=== PATIENT | female | born 1955 | race African-American/Black ===

== ENCOUNTER 2017-09-13 11:30 | Emergency (ER) | payer MEDICAID ==
[~2017-09-13] VITALS: Ht 165.1 cm; Wt 122.5 kg
[2017-09-13 11:34] VITALS: BP 137/61
[2017-09-13] MEDS ORDERED: MEPERIDINE HCL (50 MG/ML) 1 ML VIAL IM ONE (12:30)
[2017-09-13] MEDS ORDERED: PROMETHAZINE HCL 25 MG/ML 1ML IM ONE (12:30)
== END 2017-09-13 12:59 | disposition home or self-care (01) ==
LOC: ER 11:30
DX: G89.29 Other chronic pain (principal); M54.5 Low back pain; M54.32 Sciatica, left side
CPT/HCPCS: 93005; 96372; 99284; J2175; J2550

== ENCOUNTER 2022-05-24 19:28 | Emergency (ER) | payer MEDICARE, MEDICAID ==
[~2022-05-24] VITALS: Ht 165.1 cm; Wt 118.0 kg
[2022-05-24] MEDS ORDERED: ONDANSETRON ODT 4 MG TAB PO ONE (20:00)
[2022-05-24 20:30] LABS: Basophils # (auto) 0.1 10 ^3/uL (0-0.2); Eosinophils # (auto) 0.3 10 ^3/uL (0-0.8); Eosinophils % (auto) 4.7 % (0.0-7.0); Hematocrit 38.6 % (36.0-46.0); Hemoglobin 12.7 g/dL (12.2-16.2); Lymphocytes % (auto) 33.4 % (10.0-50.0); Mean Corpuscular Hemoglobin 29.4 pg (28.0-32.0); Mean Corpuscular Volume 89.3 fL (80.0-100.0); Monocytes # (auto) 0.4 10 ^3/uL (0-1.3); Monocytes % (auto) 7.3 % (0.0-12.0); Neutrophils # (auto) 3.3 10 ^3/uL (1.6-8.6); Neutrophils % (auto) 53.6 % (37.0-80.0); Nucleated Red Blood Cells % 0.2 %; Red Blood Cells 4.32 10^6/uL (4.0-5.20); White Blood Cell 6.1 10^3/uL (4.4-10.8)
[2022-05-24 20:46] LABS: Albumin 3.3 g/dL (3.4-5.0); BUN/Creatinine Ratio 9.9; Calcium 9.1 mg/dL (8.5-10.1); Potassium 4.7 mmol/L (3.5-5.1)
[2022-05-24 20:49] LABS: Bilirubin, Total 0.4 mg/dL (0.2-1.0); Total Protein 7.9 g/dL (6.4-8.2)
[2022-05-25 02:06] VITALS: BP 130/63
== END 2022-05-25 02:09 | disposition home or self-care (01) ==
LOC: ER 19:28
DX: K80.80 Other cholelithiasis without obstruction (principal)
CPT/HCPCS: 36415; 76705; 80053; 83690; 85025; 93005; 99285; Q0162

== ENCOUNTER 2023-03-11 20:46 | Emergency (ER) | payer MEDICARE, MEDICAID ==
[~2023-03-11] VITALS: Ht 165.1 cm; Wt 118.1 kg
[2023-03-11 21:30] VITALS: BP 123/51; PULSE 94; RESP 18; O2SAT 98
[2023-03-12] MEDS ORDERED: CETITAB29 PO (02:04)
[2023-03-12] MEDS ORDERED: CEPH500C PO (02:04)
[2023-03-12] MEDS ORDERED: PRED20TA2 PO (02:04)
[2023-03-12] MEDS ORDERED: diphenhdrAMINE HCL 50 MG/1 ML VL IM ONE (02:15)
[2023-03-12] MEDS ORDERED: cefTRIAXone SOD 1,000 MG VL IM ONE (02:15)
[2023-03-12] MEDS ORDERED: DexAMETHasone SOD PHOS 10MG/1ML VIAL INJ IM ONE (02:15)
== END 2023-03-12 02:34 | disposition home or self-care (01) ==
LOC: ER 20:46
DX: S80.862A Insect bite (nonvenomous), left lower leg, initial encounter (principal); S80.861A Insect bite (nonvenomous), right lower leg, initial encounter; Z79.899 Other long term (current) drug therapy; W57.XXXA Bitten or stung by nonvenomous insect and other nonvenomous arthropods, initial encounter; Y93.89 Activity, other specified; Y92.89 Other specified places as the place of occurrence of the external cause; Y99.8 Other external cause status
CPT/HCPCS: 96372; 99284; J0696; J1100; J1200

== ENCOUNTER 2023-11-23 23:27 | Inpatient (IN) | payer MEDICARE, MEDICAID ==
[~2023-11-23] VITALS: Ht 162.6 cm; Wt 118.3 kg
[~2023-11-23 23:27] MED LIST: CEPH500C PO; CETITAB29 PO; PRED20TA2 PO
[2023-11-24 00:33] LABS: Basophils # (auto) 0.1 10 ^3/uL (0-0.2); Basophils % (auto) 0.9 % (0.0-2.0); Eosinophils # (auto) 0.3 10 ^3/uL (0-0.8); Eosinophils % (auto) 3.6 % (0.0-7.0); Hematocrit 41.2 % (36.0-46.0); Hemoglobin 13.6 g/dL (12.2-16.2); Lymphocytes # (auto) 3.5 10 ^3/uL (0.4-5.4); Lymphocytes % (auto) 36.8 % (10.0-50.0); Mean Corpuscular Hemoglobin 29.9 pg (28.0-32.0); Mean Corpuscular Volume 90.5 fL (80.0-100.0); Monocytes # (auto) 0.7 10 ^3/uL (0-1.3); Monocytes % (auto) 7.3 % (0.0-12.0); Neutrophils # (auto) 4.8 10 ^3/uL (1.6-8.6); Neutrophils % (auto) 51.4 % (37.0-80.0); Nucleated Red Blood Cells % 0.1 %; Red Blood Cells 4.56 10^6/uL (4.0-5.20); Red Cell Distribution Width 13.1 % (11.8-14.3); White Blood Cell 9.4 10^3/uL (4.4-10.8)
[2023-11-24 00:52] LABS: Albumin 4.2 g/dL (3.2-4.8); Alkaline Phosphatase 87 U/L (46-116); Anion Gap 4 (5-15); Aspartate Aminotransferase 13 U/L (13-40); BUN/Creatinine Ratio 7.8 (10.0-20.0); Bilirubin, Total 0.4 mg/dL (0.2-1.0); Blood Urea Nitrogen 7 mg/dL (9-23); Calcium 9.7 mg/dL (8.7-10.4); Carbon Dioxide 29 mmol/L (20-30); Chloride 106 mmol/L (98-107); Glucose 130 mg/dL (74-106); Lipase 26 U/L (12-53); Potassium 3.2 mmol/L (3.5-5.1); Sodium 139 mmol/L (136-145); Total Protein 7.7 g/dL (5.7-8.2)
[2023-11-24 00:54] LABS: Alanine Aminotransferase < 9 U/L (7-40)
[2023-11-24] MEDS: SODIUM CHLORIDE 0.9% 1,000 ML IV ONE (01:00)
[2023-11-24] MEDS: PANTOPRAZOLE 40 MG/10 ML VIAL INJ IV ONE ×2 (02:02→14:43)
[2023-11-24] MEDS: ONDANSETRON HCL 4 MG/2 ML VIAL IV ONE (02:03)
[2023-11-24] MEDS: MORPHINE SULFATE 4 MG/ML SYR/VIAL IV ONE (02:04)
[2023-11-24] MEDS ORDERED: ONDANSETRON HCL 4 MG/2 ML VIAL IV PRN (06:30)
[2023-11-24] MEDS ORDERED: ACETAMINOPHEN 325 MG TAB PO PRN (06:30)
[2023-11-24] MEDS: POTASSIUM CHL 20 Meq TABLET PO ONE (06:30)
[2023-11-24 09:45] VITALS: PULSE 72; RESP 12; O2SAT 97
[2023-11-24 11:05] VITALS: PULSE 60
[2023-11-24 11:06] VITALS: BP 120/54; PULSE 60; RESP 16; TEMP 97.3; O2SAT 95
[2023-11-24 13:00] VITALS: BP 123/63; PULSE 66; RESP 16; TEMP 97.4; O2SAT 96
[2023-11-24 13:59] LABS: INR 1.06 (0.9-1.15); Partial Thromboplastin Time 28.7 SEC (24.5-34.5); Prothrombin Time 11.2 sec (9.3-11.8)
[2023-11-24] MEDS: metroNIDAZOLE 500 MG TAB PO SCH (14:42)
[2023-11-24] MEDS: cefTRIAXone 1GM/50ML D5W 50 ML IV ONE (14:42)
[2023-11-24 17:00] VITALS: BP 131/69; PULSE 79; RESP 16; TEMP 97.5; O2SAT 97
[2023-11-24 21:00] VITALS: BP 110/53; PULSE 66; RESP 16; TEMP 97.4; O2SAT 96
[2023-11-25] VITALS (7 sets, daily range): BP systolic 109–142; BP diastolic 49–81; PULSE 73–84; RESP 18–20; TEMP 97.5–98.1; O2SAT 95–99
[2023-11-25 05:36] LABS: Basophils # (auto) 0.1 10 ^3/uL (0-0.2); Basophils % (auto) 0.8 % (0.0-2.0); Eosinophils # (auto) 0.4 10 ^3/uL (0-0.8); Eosinophils % (auto) 5.4 % (0.0-7.0); Hematocrit 36.5 % (36.0-46.0); Hemoglobin 12.2 g/dL (12.2-16.2); Lymphocytes # (auto) 2.7 10 ^3/uL (0.4-5.4); Lymphocytes % (auto) 34.6 % (10.0-50.0); Mean Corpuscular Hemoglobin 30.3 pg (28.0-32.0); Mean Corpuscular Hgb Conc. 33.5 g/dL (32.0-36.0); Mean Corpuscular Volume 90.5 fL (80.0-100.0); Monocytes # (auto) 0.8 10 ^3/uL (0-1.3); Monocytes % (auto) 9.6 % (0.0-12.0); Neutrophils # (auto) 3.9 10 ^3/uL (1.6-8.6); Neutrophils % (auto) 49.6 % (37.0-80.0); Nucleated Red Blood Cells % 0.1 %; Red Blood Cells 4.04 10^6/uL (4.0-5.20); White Blood Cell 7.9 10^3/uL (4.4-10.8)
[2023-11-25 05:55] LABS: Albumin 3.7 g/dL (3.2-4.8); Alkaline Phosphatase 75 U/L (46-116); Anion Gap 4 (5-15); Aspartate Aminotransferase 12 U/L (13-40); Bilirubin, Total 0.6 mg/dL (0.2-1.0); Calcium 9.5 mg/dL (8.7-10.4); Carbon Dioxide 29 mmol/L (20-30); Chloride 108 mmol/L (98-107); Glucose 100 mg/dL (74-106); Potassium 4.3 mmol/L (3.5-5.1); Sodium 141 mmol/L (136-145)
[2023-11-25 05:56] LABS: Total Protein 6.6 g/dL (5.7-8.2)
[2023-11-25 06:00] LABS: Alanine Aminotransferase < 9 U/L (7-40); BUN/Creatinine Ratio 6.1 (10.0-20.0); Blood Urea Nitrogen < 5 mg/dL (9-23)
[2023-11-25 06:59] LABS: Urine Bacteria None Seen /hpf (None Seen)
[2023-11-25 07:25] LABS: Urine Blood Negative /uL (Negative); Urine Clarity Clear (Clear); Urine Protein, UAD Negative (Negative); Urine Specific Gravity 1.005 (1.001-1.035); Urine Urobilinogen Normal (Negative); Urine WBC <1 /hpf (0 - 5); Urine pH 6.5 (5.0-9.0)
[2023-11-25 07:29] LABS: Urine Color Straw (Yellow)
[2023-11-25] MEDS: PANTOPRAZOLE 40 MG/10 ML VIAL INJ IV SCH (12:02)
[2023-11-25] MEDS: cefTRIAXone 1GM/50ML D5W 50 ML IV SCH (12:02)
[2023-11-26 01:03] VITALS: BP 130/50; PULSE 72; RESP 18; TEMP 98.2; O2SAT 98
[2023-11-26 05:23] VITALS: BP 130/53; PULSE 81; RESP 18; TEMP 98; O2SAT 98
[2023-11-26] MEDS ORDERED: LEVO500T91 PO (08:30)
[2023-11-26] MEDS ORDERED: METR-344 PO (08:30)
[2023-11-26] MEDS: HYDROcodone-ACET 5/325MG TAB PO PRN (08:34)
[2023-11-26 09:00] VITALS: BP 125/68; PULSE 78; RESP 18; TEMP 98.2; O2SAT 98
[2023-11-26 10:35] VITALS: TEMP 36.8
== END 2023-11-26 11:34 | disposition home or self-care (01) | DRG 445 ==
LOC: ER 23:27 → EEVIPCON 23:27 → OVERFLOW 11-24 06:33 → CENTRAL 11-24 10:55
PROVIDERS: ADMIT Nurse Practitioner; ATTEND Family Medicine
DX: K80.20 Calculus of gallbladder without cholecystitis without obstruction (principal); Z68.41 Body mass index [BMI] 40.0-44.9, adult; E87.6 Hypokalemia; E66.01 Morbid (severe) obesity due to excess calories; M10.9 Gout, unspecified; K52.9 Noninfective gastroenteritis and colitis, unspecified; Z82.49 Family history of ischemic heart disease and other diseases of the circulatory system; Z83.3 Family history of diabetes mellitus; Z80.3 Family history of malignant neoplasm of breast; Z80.0 Family history of malignant neoplasm of digestive organs; Z80.49 Family history of malignant neoplasm of other genital organs
CPT/HCPCS: 36415; 71045; 74176; 76705; 78226; 80053; 81001; 83605; 83690; 83880; 84484; 85025; 85610; 85730; 86850; 86900; 86901; 87040; 93005; 93306; 96361; 96374; 96375; C9113; G0378; J2405

== ENCOUNTER → 2024-04-06 | Outpatient (CLI) | payer MEDICARE, MEDICAID ==
[~2024-04-06] VITALS: Ht 165.1 cm; Wt 117.9 kg
[~2024-04-06] MED LIST changes: +LEVO500T91 PO; +METR-344 PO
[2024-04-06] MEDS: ADENOSINE 99 MG in GIVE UN-DILUTED 0 ML IV STA (12:41)
--- NOTE | 2024-04-06 15:11 | DVHSR ---
APPROVED REPORT Exam: Nuclear Stress Test BMI: 0 Stress Test Details HR Max Heart Rate (APMHR): 150.831505 bpm Target HR (85% APMHR): 127.580768 bpm BP ECG Stress ECG Conclusion Resting ECG shows normal sinus rhythm. At peak stress level no dynamic EKG changes was noted to sugg est ischemia. Resting images shows near homogeneous uptake of radioactive tracer throughout the myocardium without evidence of myocardial infarction. Stress images shows near homogeneous uptake of radioactive tracer throughout the myocardium without e vidence of myocardial ischemia. Well-preserved left ventricular systolic function at 68% Impression: Negative stress test for ischemia, low risk study NM EXAM: Myocardial Perfusion REST/STRESS Imaging Protocol: Rest Tc-99m/Stress Tc-99m 1 day Resting Data Rest SPECT myocardial perfusion imaging was performed in supine position 45 minutes following the int ravenous injection of 11.3 mCi of Tc-99m Sestamibi. Time of rest injection: 1100 Time of rest imagin Administration Route: IV Administration Site: Left Hand Pharmacologic Stress Pharmacologic stress test was performed by injecting Adenosine mg IV push followed by the intravenou s injection of 32.1 mCi of Tc-99m Sestamibi. Time of stress injection: 1215 Time of stress imagin Administration Route: IV Administration Site: Left Hand Gated Stress SPECT was performed 65 minutes after stress injection. The images were gated to evaluate regional wall motion and calculate left ventricular ejection fracti on. Nuclear Conclusion ECG Findings: negative for ischemia Clinical Findings: negative for ischemia Nuclear Findings: negative for ischemia Exercise Capacity: abnormal Left Ventricular Function: normal Risk Study: low Resting ECG shows normal sinus rhythm. At peak stress level no dynamic EKG changes was noted to sugg est ischemia. Resting images shows near homogeneous uptake of radioactive tracer throughout the myocardium without evidence of myocardial infarction. Stress images shows near homogeneous uptake of radioactive tracer throughout the myocardium without e vidence of myocardial ischemia. Well-preserved left ventricular systolic function at 68% Impression: Negative stress test for ischemia, low risk study
== END | disposition home or self-care (01) ==
LOC: XYW 11:14
PROVIDERS: ATTEND Student in an Organized Health Care Education/Training Program
DX: Z01.810 Encounter for preprocedural cardiovascular examination (principal); K80.20 Calculus of gallbladder without cholecystitis without obstruction
CPT/HCPCS: 78452; 93017; A9500; J0153

== ENCOUNTER 2024-12-08 20:45 | Emergency (ER) | payer MEDICARE, MEDICAID ==
[~2024-12-08] VITALS: Ht 165.1 cm; Wt 116.7 kg
[2024-12-08 22:45] LABS: Rapid Influenza A Negative (Negative); Rapid Influenza B Negative (Negative)
[2024-12-08 22:47] LABS: COVID19 ANTIGEN SOFIA FIA NEGATIVE (NEGATIVE)
[2024-12-08] MEDS ORDERED: AZIT-43 PO (23:04)
[2024-12-08] MEDS ORDERED: ACET500T58 PO (23:04)
--- NOTE | 2024-12-08 23:04 | ED.PDOC ---
SOB-HPI HPI Comments 69-year-old female presents to ER with complaints of flu-like symptoms x2 days. Patient reports that she has been experiencing cough, congestion, runny nose and sore throat x2 days. Patient also reports that she had two episodes of nausea/vomiting today. She reports 5/10 sore throat pain, denying any other current pain and presents to ER ambulatory on arrival, with steady gait, in no distress with vitals stable. 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 History Family History Family History: Family hx of DM, Family hx of heart bharti, Family hx of HTN Social History Smoker: Non-Smoker Alcohol: Denies ETOH Use Drugs: Denies Drug Use Lives In: Home Constitutional: denies: chills, diaphoresis, fatigue, fever, malaise, sweats, weakness, others EENTM: reports: others (As stated in HPI) Respiratory: reports: others (As stated in HPI) Cardiovascular: denies: chest pain, dizzy spells, diaphoresis, Dyspnea on exertion, edema, irregular heart beat, left arm pain, lightheadedness, palpitations, PND, syncope, others Gastrointestinal: reports: others (As stated in HPI) Genitourinary: denies: abnormal vagina bleeding, burning, dyspareunia, dysuria, flank pain, frequency, hematuria, incontinence, pain, , vagina discharge, urgency, others Neurological: denies: dizziness, fainting, headache, left sided numbness, left sided weakness, numbness, paresthesia, pre-existing deficit, right sided numbness, right sided weakness, seizure, speech problems, tingling, tremors, weakness, others Musculoskeletal: denies: back pain, gout, joint pain, joint swelling, muscle pain, muscle stiffness, neck pain, others Integumetry: denies: bruises, change in color, change in hair/nails, dryness, laceration, lesions, lumps, rash, wounds, others Allergic/Immunocompromised: denies: Difficulty Healing, Frequent Infections, Hives, Itching, others Hematologic/Lymphatic: denies: anemia, blood clots, easy bleeding, easy bruis ing, swollen glands, others Endocrine: denies: excessive hunger, excessive sweating, excessive thirst, exc essive urination, flushing, intolerance to cold, intolerance to heat, unexplained weight gain, unexplained weight loss, others Psychiatric: denies: anxiety, bipolar disorder, depression, hopeless, panic disorder, schizophrenia, sleepless, suicidal, others Physical Exam General Appearance: No Apparent Distress, Obese HEENT: Normal ENT Inspection, PERRL/EOMI, Pharynx Normal, TMs Normal Neck: Full Range of Motion, Non-Tender, Normal Respiratory: Chest Non-Tender, Lungs Clear, No Accessory Muscle Use, No Respiratory Distress, Normal Breath Sounds Cardiovascular: No Murmur, No Gallop, Regular Rate/Rhythm Breast Exam: Deferred Gastrointestinal: NOT DONE Genitalia: Deferred Pelvic: Deferred Rectal: Deferred Extremities: Normal capillary refill, Normal range of motion Neurologic: Alert, phys asst II-XII nml as Tested, No Motor Deficits, Normal Affect, Normal Mood, No Sensory Deficits Cerebellar Function: Normal Reflexes: Normal Skin: Dry, Normal Color, Warm Peripheral Pulses: 2+ Radial (R), 2+ Radial (L), 2+ Brachial (R), 2+ Brachial (L) Lymphatic: No Adenopathy Was a procedure done? Was a procedure done?: No Sedation Sedation?: No Differential Dx Differential Diagnosis: Pneumonia, Respiratory Distress, Pharyngitis, Other (COVID-19, Influenza) X-Ray, Labs, Meds, VS Vital Signs Date Time Temp Pulse Resp B/P (MAP) Pulse Ox O2 Delivery O2 Flow Rate FiO2 12/08/24 21:22 98.8 85 15 136/60 (85) 96 98.8 Lab Test 12/08/24 21:20 Range/Units Influenza Type A Antigen Negative Negative Influenza Type B Antigen Negative Negative SARS-CoV-2 Antigen (Rapid) Negative NEGATIVE Swab results reviewed-negative Solu-Medrol 125 mg IM ordered Patient in no distress during ER visit/prior to discharge Advised to drink plenty of fluids Advised to follow up with PCP in 1-2 days Patient verbalized understanding and agreeable with current plan of care Advised to return to ER immediately if symptoms worsen Time of 1ST Reevaluation: 22:54 Reevaluation 1ST: N/A Patient Education/Counseling: Diagnosis, Treatment, Prognosis, Need For Follow Up Family Education/Counseling: Diagnosis, Treatment, Prognosis, Need For Follow Up Departure 1 Departure Time of Disposition: 23:02 Impression: Primary Impression: Upper respiratory infection Qualified Codes: J06.9 - Acute upper respiratory infection, unspecified Disposition: HOME / SELF CARE / HOMELESS Condition: Stable e-Prescriptions Acetaminophen (Acetaminophen) 500 Mg Tab 500 MG PO Q4HPRN, #30 TAB 0 Refills Prov: ANA LAURA CARTAGENA 12/08/24 Prednisone (Prednisone) 20 Mg Tab 20 MG PO BID for 5 Days, #10 TAB 0 Refills Prov: ANA LAURA CARTAGENA 12/08/24 Azithromycin (Azithromycin) 250 Mg Tab 250 MG PO DAILY MDD 500 for 5 Days, #6 TAB 0 Refills 2 TABLETS ORALLY ON DAY ONE, THEN 1 TABLET ORALLY DAILY FOR 4 DAYS Prov: ANA LAURA CARTAGENA 12/08/24 Discharged With: Self Critical Care Note Critical Care Time?: No Stability Stability form required: No Heart Score Heart Score: Heart Score Response (Comments) Value History N/A 0 EKG N/A 0 Age N/A 0 Risk Factors N/A 0 Troponin N/A 0 Total 0 ANA LAURA CARTAGENA Dec 08, 2024 23:04
[2024-12-09 01:36] VITALS: BP 117/51; PULSE 101; RESP 14; TEMP 99.1; O2SAT 100
[2024-12-09] MEDS: methylPREDNISolone SOD SUCC 125 MG/2 ML VL IM ONE (01:39)
== END 2024-12-09 01:39 | disposition home or self-care (01) ==
LOC: ER 20:50
DX: J06.9 Acute upper respiratory infection, unspecified (principal); M19.90 Unspecified osteoarthritis, unspecified site; M10.9 Gout, unspecified; Z20.822 Contact with and (suspected) exposure to COVID-19
CPT/HCPCS: 36415; 87426; 87804; 96372; 99283; J2919

== ENCOUNTER 2025-03-18 08:11 | Outpatient (CLI) | payer MEDICARE, MEDICAID ==
[~2025-03-18 08:11] MED LIST changes: +ACET500T58 PO; +AZIT-43 PO
[2025-03-18 08:42] LABS: Hematocrit 39.4 % (36.0-46.0); Hemoglobin 12.9 g/dL (12.2-16.2); Mean Corpuscular Hemoglobin 29.6 pg (28.0-32.0); Mean Corpuscular Volume 90.1 fL (80.0-100.0); Nucleated Red Blood Cells % 0.1 %
[2025-03-18 08:51] LABS: Urine Protein, UAD Negative (Negative)
[2025-03-18 08:56] LABS: Alanine Aminotransferase 10 U/L (7-40); Albumin 4.1 g/dL (3.2-4.8); Alkaline Phosphatase 80 U/L (46-116); Anion Gap 8 (5-15); BUN/Creatinine Ratio 9.2 (10.0-20.0); Bilirubin, Total 0.8 mg/dL (0.2-1.0); Calcium 9.0 mg/dL (8.7-10.4); Carbon Dioxide 28 mmol/L (20-31); Chloride 106 mmol/L (98-107); Cholesterol 145 mg/dL (< 200); Glucose 102 mg/dL (74-106); HDL Cholesterol 42 mg/dL (40-59); Potassium 4.5 mmol/L (3.5-5.1); Sodium 142 mmol/L (136-145); Total Protein 7.6 g/dL (5.7-8.2); Triglycerides 70 mg/dL (< 150)
[2025-03-18 09:05] LABS: Blood Urea Nitrogen 8 mg/dL (9-23)
[2025-03-18 09:49] LABS: Uric Acid 7.0 mg/dL (3.1-7.8)
== END 2025-03-18 17:00 | disposition home or self-care (01) ==
LOC: LAB 08:11
PROVIDERS: ATTEND Internal Medicine
DX: I10 Essential (primary) hypertension (principal); E78.5 Hyperlipidemia, unspecified; G31.84 Mild cognitive impairment of uncertain or unknown etiology; E55.9 Vitamin D deficiency, unspecified; E66.01 Morbid (severe) obesity due to excess calories; Z68.41 Body mass index [BMI] 40.0-44.9, adult
CPT/HCPCS: 36415; 80053; 80061; 81001; 82306; 82607; 83036; 84443; 84550; 85025; 85652; 86141